=== PATIENT | female | born 1980 | race Caucasian/White ===

== ENCOUNTER 2022-11-04 12:45 | Day surgery (SDC) | payer OTHER ==
[~2022-11-04] VITALS: Ht 165.1 cm; Wt 61.2 kg
[2022-11-04] MEDS ORDERED: fentaNYL citrate 0.05 MG/ML VIAL ONE (13:12)
[2022-11-04] MEDS ORDERED: LIDOCAINE 2% 100 MG/5 ML UJET TP ONE (13:12)
[2022-11-04] MEDS ORDERED: MIDAZOLAM 2 MG/2 ML VIAL ONE (13:12)
[2022-11-04] MEDS ORDERED: diphenhydrAMINE 50 MG/ML VIAL ONE (13:12)
[2022-11-04] MEDS ORDERED: fentaNYL citrate 0.05 MG/ML VIAL IVP ONE (14:20)
[2022-11-04] MEDS ORDERED: MIDAZOLAM 2 MG/2 ML VIAL IVP ONE (14:20)
[2022-11-04] MEDS ORDERED: diphenhydrAMINE 50 MG/ML VIAL IVP ONE (14:20)
== END 2022-11-04 14:35 | disposition home or self-care (01) ==
LOC: MDS 12:45 → MMU 12:54 → MDS 14:35
PROVIDERS: ATTEND Internal Medicine Gastroenterology
DX: K62.5 Hemorrhage of anus and rectum (principal); K63.5 Polyp of colon; K64.8 Other hemorrhoids; G43.909 Migraine, unspecified, not intractable, without status migrainosus; Z98.82 Breast implant status
CPT/HCPCS: 45380; 45385; 88305; J1200; J2250; J3010